=== PATIENT | male | born 1985 | race Caucasian/White ===

== ENCOUNTER 2020-02-28 10:41 | Emergency (ER) | payer OTHER ==
[2020-02-28 10:50] VITALS: BP 144/80; PULSE 71; TEMP 98; BMI 31.1
[2020-02-28] MEDS ORDERED: CEFTRIAXONE 1 GM/50 ML BAG ONE (11:38)
[2020-02-28] MEDS ORDERED: AZITHROMYCIN IVPB 500 MG/250 ML BAG IVPB ONE (11:38)
[2020-02-28] MEDS ORDERED: ACETAMINOPHEN 500 MG TABLET (FP) PO ONE (11:49)
[2020-02-28] MEDS ORDERED: ACETAMINOPHEN 500 MG TABLET (FP) ONE (11:51)
[2020-02-28] MEDS ORDERED: DEXAMETHASONE SOD PHOSPHATE 4 MG/1 ML VIAL ONE (14:00)
== END 2020-02-28 12:01 | disposition home or self-care (01) ==
LOC: JERFT 10:41 → JER 10:41 → JERFT 12:01
DX: M54.2 Cervicalgia (principal)
CPT/HCPCS: 99283-25